=== PATIENT | female | born 1985 | race African-American/Black ===

== ENCOUNTER 2016-08-06 08:29 | Emergency (ER) | payer MEDICAID ==
[~2016-08-06] VITALS: Ht 165.1 cm; Wt 100.0 kg
[~2016-08-06 08:29] MED LIST: AMOXICILLIN500 MG PO; BIRTH CONTROL; NAPROSYN500 MG PO; TIZANIDINE4 MG PO; ULTRAM50 MG OR
[2016-08-06] MEDS ORDERED: LORTAB 5-325 MG1 TAB PO (09:25)
[2016-08-06] MEDS ORDERED: MOTRIN800 MG PO (09:25)
[2016-08-06] MEDS ORDERED: PENICILLN VK500 MG PO (09:25)
[2016-08-06 09:36] VITALS: BP 137/93
== END 2016-08-06 09:36 | disposition home or self-care (01) | DRG 159 ==
LOC: ED 08:29
DX: K02.9 Dental caries, unspecified (principal)